=== PATIENT | female | born 2000 | race Two or more races ===

== ENCOUNTER 2025-06-18 10:33 | Day surgery (SDC) | payer OTHER ==
[2025-06-15 10:57] VITALS: BP 106/68
[2025-06-15 11:01] LABS: BASO % 0.4 % (0.1-1.2); EOS # 0.08 (0.04-0.54); EOS % 1.6 % (0.7-7.0); LYMPH # 1.93 (1.18-3.74); LYMPH % 37.7 % (19.3-53.1); MEAN PLATELET VOLUME 10.80 fl (9.4-12.4); MONO # 0.35 (0.24-0.82); MONO % 6.8 % (4.7-12.5); NEUT # 2.72 (1.56-6.13); NEUT % 53.1 % (34.0-71.1); RED CELL DISTRIBUTION WIDTH 12.7 % (11.6-14.4)
[2025-06-15 11:06] LABS: URINE APPEARANCE Clear; URINE BILIRRUBIN Negative (NEGATIVE); URINE BLOOD Negative; URINE COLOR Yellow; URINE GLUCOSE Negative (NEGATIVE); URINE KETONE Negative (NEGATIVE); URINE LEUKOCYTE Negative; URINE NITRATE Negative; URINE PROTEIN Negative (NEGATIVE); URINE UROBILINOGEN 0.2 E.U./dl
[2025-06-15 11:11] LABS: URINE BACTERIA 221.9 uL (0.0-1933); URINE EPITHELIAL CELLS 15.8 uL (0.0-38.8); URINE RBC 2.1 uL (0.0-20.8); URINE WBC 10.6 uL (0.0-23.2)
[2025-06-15 11:17] LABS: URINE CAST 0.00 uL (0.0-1.40)
[2025-06-15 11:27] LABS: INR 1.03
[2025-06-15 12:07] LABS: ALT/SGPT 30.0 U/L (12-78); AST/SGOT 17.0 U/L (15-37); BILIRUBIN TOTAL 0.45 mg/dL (0.3-1.2); BUN CREA RATIO 21.0 (7.0-25.0); CREATININE SERUM 0.62 mg/dL (0.55-1.02); GFR 115.46; GLOBULINA 3.2 G/DL (2.4-3.5); GLUCOSE FASTING 84.0 mg/dL (65-100); OSMOLALITY SERUM 281.0 MOSM/KG (275-295)
[~2025-06-18] VITALS: Ht 160 cm; Wt 78.9 kg
[2025-06-18] MEDS ORDERED: CEFAZOLIN SODIUM 1,000 MG VIAL ONE (10:56)
[2025-06-18] MEDS ORDERED: POVIDONE-IODINE 118 ML BOTT TOP ONE (15:59)
[2025-06-18] MEDS ORDERED: DOXYCYCLINE HY100 M2 PO (17:24)
[2025-06-18] MEDS ORDERED: IBU600 MG PO (17:24)
== END 2025-06-18 21:45 | disposition home or self-care (01) ==
LOC: CIR.AMB 10:33
PROVIDERS: ATTEND Obstetrics & Gynecology
DX: D25.0 Submucous leiomyoma of uterus (principal); N95.0 Postmenopausal bleeding; N84.0 Polyp of corpus uteri

== ENCOUNTER 2025-06-23 12:53 | Inpatient (IN) | payer OTHER ==
[~2025-06-23] VITALS: Ht 160 cm; Wt 78.5 kg
[~2025-06-23 12:53] MED LIST: DOXYCYCLINE HY100 M2 PO; IBU600 MG PO
[2025-06-23] MEDS ORDERED: 0.9 % SODIUM CHLORIDE 1,000 ML IV STA (14:32)
[2025-06-23] MEDS ORDERED: FAMOTIDINE/PF 20 MG/2 ML VIAL IV STA (14:33)
[2025-06-23] MEDS ORDERED: DEXAMETHASONE SODIUM PHOSPHATE 4 MG/ML VIAL IV STA (14:33)
[2025-06-23] MEDS ORDERED: KETOROLAC TROMETHAMINE 30 MG VIAL IU STA (14:33)
[2025-06-23] MEDS ORDERED: ONDANSETRON HCL 2 MG/ML VIAL IV STA (14:34)
[2025-06-23] MEDS ORDERED: DEXAMETHASONE SODIUM PHOSPHATE 4 MG/ML VIAL ONE (15:14)
[2025-06-23] MEDS ORDERED: ONDANSETRON HCL 2 MG/ML VIAL ONE (15:14)
[2025-06-23] MEDS ORDERED: KETOROLAC TROMETHAMINE 30 MG VIAL ONE (15:14)
[2025-06-23] MEDS ORDERED: FAMOTIDINE/PF 20 MG/2 ML VIAL ONE (15:14)
[2025-06-23 15:57] LABS: BASO % 0.4 % (0.1-1.2); EOS # 0.08 (0.04-0.54); EOS % 1.0 % (0.7-7.0); LYMPH # 2.49 (1.18-3.74); LYMPH % 31.1 % (19.3-53.1); MEAN PLATELET VOLUME 10.80 fl (9.4-12.4); MONO # 0.54 (0.24-0.82); MONO % 6.7 % (4.7-12.5); NEUT # 4.85 (1.56-6.13); NEUT % 60.6 % (34.0-71.1); RED CELL DISTRIBUTION WIDTH 12.3 % (11.6-14.4)
[2025-06-23 16:35] LABS: URINE APPEARANCE Clear; URINE BILIRRUBIN Negative (NEGATIVE); URINE BLOOD Negative; URINE COLOR Yellow; URINE GLUCOSE Negative (NEGATIVE); URINE KETONE Trace (NEGATIVE); URINE LEUKOCYTE Trace; URINE NITRATE Negative; URINE PROTEIN Trace (NEGATIVE); URINE UROBILINOGEN 0.2 E.U./dl
[2025-06-23 16:38] LABS: BUN CREA RATIO 18.0 (7.0-25.0); CREATININE SERUM 0.97 mg/dL (0.55-1.02); GFR 68.89; GLUCOSE FASTING 77.0 mg/dL (65-100); OSMOLALITY SERUM 283.0 MOSM/KG (275-295)
[2025-06-23 16:41] LABS: URINE BACTERIA 68.3 uL (0.0-1933); URINE EPITHELIAL CELLS 65.5 uL (0.0-38.8); URINE RBC 40.4 uL (0.0-20.8); URINE WBC 8.4 uL (0.0-23.2)
[2025-06-23 17:26] LABS: URINE CAST 0.29 uL (0.0-1.40)
[2025-06-23 17:30] LABS: TYPE CELLS SQUAMOUS; URINE MUCUS MODERATE
[2025-06-23] MEDS ORDERED: PIPERACILLIN/TAZOBACTAM SODIUM 3.375 GM in 0.9 % SODIUM CHLORIDE 100 ML IV SCH (20:18)
[2025-06-23] MEDS ORDERED: PIPERACILLIN/TAZOBACTAM SODIUM 3.375 GM VIAL IV ONE (20:32)
[2025-06-23] MEDS ORDERED: 0.9 % SODIUM CHLORIDE 1,000 ML IV SCH (21:15)
[2025-06-23] MEDS ORDERED: ACETAMINOPHEN 500 MG GEL..CAP PO PRN (21:15)
[2025-06-24 01:53] VITALS: BP 102/63; O2SAT 99
[2025-06-24 02:31] VITALS: BP 102/63
[2025-06-24 03:44] LABS: COVID-19 AG NEGATIVE (NEGATIVE)
[2025-06-24] MEDS ORDERED: PIPERACILLIN/TAZOBACTAM SODIUM 3.375 GM VIAL IV SCH (05:00)
[2025-06-24 06:19] LABS: BASO % 0.2 % (0.1-1.2); EOS # 0.01 (0.04-0.54); EOS % 0.1 % (0.7-7.0); LYMPH # 1.87 (1.18-3.74); LYMPH % 17.6 % (19.3-53.1); MEAN PLATELET VOLUME 12.00 fl (9.4-12.4); MONO # 0.67 (0.24-0.82); MONO % 6.3 % (4.7-12.5); NEUT # 8.02 (1.56-6.13); NEUT % 75.4 % (34.0-71.1); RED CELL DISTRIBUTION WIDTH 12.4 % (11.6-14.4)
[2025-06-24 06:53] LABS: ERYTHROCYTE SEDIMENTATION RATE 8 mm/hr (0-20)
[2025-06-24] MEDS ORDERED: FAMOTIDINE/PF 20 MG/2 ML VIAL IV SCH (09:00)
[2025-06-24 09:19] VITALS: BP 103/49
[2025-06-24 17:36] VITALS: BP 107/68
[2025-06-24 19:28] VITALS: BP 115/75
[2025-06-25 00:35] VITALS: BP 135/83
[2025-06-25 06:46] LABS: BASO % 0.5 % (0.1-1.2); EOS # 0.09 (0.04-0.54); EOS % 1.4 % (0.7-7.0); LYMPH # 2.96 (1.18-3.74); LYMPH % 46.5 % (19.3-53.1); MEAN PLATELET VOLUME 11.50 fl (9.4-12.4); MONO # 0.37 (0.24-0.82); MONO % 5.8 % (4.7-12.5); NEUT # 2.90 (1.56-6.13); NEUT % 45.5 % (34.0-71.1); RED CELL DISTRIBUTION WIDTH 12.3 % (11.6-14.4)
[2025-06-25 08:40] VITALS: BP 112/79
[2025-06-25 18:30] VITALS: BP 108/60
[2025-06-26 00:28] VITALS: BP 91/60
[2025-06-26 08:00] VITALS: BP 90/57
[2025-06-26] MEDS ORDERED: AMOX-CLAV 875-1 EACH PO (09:15)
[2025-06-26] MEDS ORDERED: PYRIDIUM100 M1 PO (09:16)
== END 2025-06-26 11:21 | disposition home or self-care (01) | DRG 690 ==
LOC: ER 12:53 → MEDI 21:25 → SEC-K 21:25 → MEDI 06-24 → OB/GYN 06-24 19:26
PROVIDERS: General Practice; ADMIT Obstetrics & Gynecology; ATTEND Obstetrics & Gynecology
PROC: BW21ZZZ Computerized Tomography (CT Scan) of Abdomen and Pelvis (ICD-10-PCS; principal; 2025-06-23)
PROC: BW21YZZ Computerized Tomography (CT Scan) of Abdomen and Pelvis using Other Contrast (ICD-10-PCS; 2025-06-23)
PROC: BU4CZZZ Ultrasonography of Uterus and Ovaries (ICD-10-PCS; 2025-06-23)
DX: N30.90 Cystitis, unspecified without hematuria (principal); R50.82 Postprocedural fever; R10.20 Pelvic and perineal pain unspecified side